=== PATIENT | male | born 1965 | race Caucasian/White ===

== ENCOUNTER → 2020-08-23 | Outpatient (CLI) | payer OTHER ==
[~2020-08-23] MED LIST: IBUP80TA PO; NICO21DI6 TD; OMEP40CA97 PO; PANT-23 PO; PERC5TAB12 PO
== END ==
LOC: M LABSMTC 11:03
PROVIDERS: ATTEND Anesthesiology
DX: Z01.812 Encounter for preprocedural laboratory examination (principal); Z20.822 Contact with and (suspected) exposure to COVID-19

== ENCOUNTER 2020-08-28 10:24 | Day surgery (SDC) | payer OTHER ==
[~2020-08-28] VITALS: Ht 180.3 cm; Wt 70.3 kg
[~2020-08-28 10:24] MED LIST changes: +LIDOCAINE 2% 100MG/5ML SDV (FOR ANES.) As Ordered ONE; +NS 1,000 ML IV ONE; +fentaNYL 100 MCG/2 ML INJECTION (J3010) As Ordered ONE; +propofoL 200 MG/20 ML VIAL As Ordered ONE
--- OUTSIDE RECORDS SUMMARY | 2020-08-28 10:31 | CCD | Continuity of Care Document ---
Author Author Amador JORGE M.D. Organization Unknown Address [address] [address] Phone [phone] Care Team Providers Care Pharmacy Technician Instructor Name Role Phone Robert Grigsby AUTM [phone] No PCP AUTM Unavailable Problems Description No Information Available Social History Type Date Description Comments Sex Unknown ETOH Use 5 A Day Tobacco Use Start: Unknown Patient is a current smoker, smo kes every day 1ppd Allergies, Adverse Reactions, Alerts Description No Known Drug Allergies Medications Description No Active Medications Immunizations Description No Information Available Vital Signs Date Vital Result Comment 08/07/2020 9:35am BP Systolic 122 mmHg BP Diastolic 70 mmHg Height 71 inches 5'11" Weight 162.00 lb BMI (Body Mass Index) 22.6 kg/m2 [place] Body Weight 172 lb Weight 73.483 kg BSA (Body Surface Area) 1.93 m2 Results Description No Information Available Procedures Description No Information Available Medical Devices Description No Information Available Encounters Description No Information Available Assessments Description No Information Available Plan of Treatment 08/07/2020 - Flavio Jorge M.D.* * New Medication:* No Active Medications Functional Status Description No Information Available Mental Status Description No Information Available Referrals Refer to Reason for Referral Status Appt Date Flavio Jorge M.D. unknown causes of abdominal pain Hugo eduled 08/07/[address] [address] [phone]
--- OUTSIDE RECORDS SUMMARY | 2020-08-28 10:31 | CCD ---
Author Author [facility] Organization [facility] Address Unknown Phone Unavailable Care Team Providers Care Refuse Collector Name Role Phone KENNA, L RAYSHAWN PA Unavailable Unavailable KENNA, L RAYSHAWN PA Unavailable Unavailable KENNA, L RAYSHAWN PA Unavailable Unavailable KENNA, L RAYSHAWN PA Unavailable Unavailable KENNA, L RAYSHAWN PA Unavailable Unavailable KENNA, L RAYSHAWN PA Unavailable Unavailable KENNA, L RAYSHAWN PA Unavailable Unavailable KENNA, L RAYSHAWN PA Unavailable Unavailable KENNA, L RAYSHAWN PA Unavailable Unavailable KENNA, L RAYSHAWN PA Unavailable Unavailable KENNA, L RAYSHAWN PA Unavailable Unavailable KENNA, L RAYSHAWN PA Unavailable Unavailable KENNA, L RAYSHAWN PA Unavailable Unavailable KENNA, L RAYSHAWN PA Unavailable Unavailable KENNA, L RAYSHAWN PA Unavailable Unavailable KENNA, L RAYSHAWN PA Unavailable Unavailable KENNA, L RAYSHAWN PA Unavailable Unavailable KENNA, L RAYSHAWN PA Unavailable Unavailable KENNA, L RAYSHAWN PA Unavailable Unavailable Re-disclosure Warning The records that you are about to access may contain information from federally-assisted alcohol or drug abuse programs. If such information is present, then the following federally mandated warning applies: This information has been disclosed to you from records protected by federal confidentiality rules (42 CFR part 2). The federal rules prohibit you from making any further disclosure of this information unless further disclosure is expressly permitted by the written consent of the person to whom it pertains or as otherwise permitted by 42 CFR part 2. A general authorization for the release of medical or other information is NOT sufficient for this purpose. The Federal rules restrict any use of the information to criminally investigate or prosecute any alcohol or drug abuse patient.The records that you are about to access may contain highly sensitive health information, the redisclosure of which is protected by Article 27-F of the [facility] Public Health law. If you continue you may have access to information: Regarding HIV / AIDS; Provided by facilities licensed or operated by the [facility] Office of Mental Health; or Provided by the [facility] Office for People With Developmental Disabilities. If such information is present, then the following [facility] mandated warning applies: This information has been disclosed to you from confidential records which are protected by state law. State law prohibits you from making any further disclosure of this information without the specific written consent of the person to whom it pertains, or as otherwise permitted by law. Any unauthorized further disclosure in violation of state law may result in a fine or long term sentence or both. A general authorization for the release of medical or other information is NOT sufficient authorization for further disc losure. Encounters Encounter Providers Location Date Indications Data Source(s ) Emergency Attender: RAYSHAWN [facility]-ER 04:42:00 PM EDT - 03/31/2020 07:24:00 PM T [facility] Patient discharged. Medications Medication Brand Name Start Date Product Form Dose Route Admi nistrative Instructions Pharmacy Instructions Status Indications Reaction Description Data Source(s) 420 gram 08/13/2020 12:00:00 AM EST recon soln 4000 DRINK THE LIQUID PER THE PRE-PROCEDURE INSTRUCTIONS DRINK THE LIQUID PER THE PRE-PROCEDUR E INSTRUCTIONS SOLD: 08/14/2020 [facility] 5 mg 08/13/2020 12:00:00 AM EST tablet,delayed release (DR/EC) 4 TAKE FOUR TABLETS BY MOUTH TOGETHER PER BOWEL PREPARATIONS INSTRUCTIONS TAKE FOUR TABLETS BY MOUTH TOGETHER PER BOWEL PREPARATIONS INSTRUCTIONS SOLD: 08/14/2020 [facility] pantoprazole 40 MG Delayed Release Oral Tablet PANTOPRAZOLE SODIUM 08/11/2020 12:00:00 AM EST tablet,delayed release (DR/EC) 60 T LIZBET ONE TABLET BY MOUTH TWICE A DAY -- 1 TABLET IN THE MORNING 1/2 HOUR BEFORE BREAKFAST AND 1 TABLET PRIOR TO BEDTIME TOTAL COURSE 3 MONTHS TAKE ONE TABLET BY MOUTH TWICE A DAY -- 1 TABLET IN THE MORNING 1/2 HOUR BEFORE BREAKFAST AND 1 TABLET PRIOR TO BEDTIME TOTAL COURSE 3 MONTHS SOLD: 08/14/2020 [facility] 5-325 mg 03/31/2020 12:00:00 AM EDT tablet 12 TAKE 1-2 TABLETS BY MOUTH EVERY 4-6 HOURS NEEDED , MAXIMUM DAILY DOSE = 12 TABLETS TAKE 1-2 TABLETS BY MOUTH EVERY 4-6 HOURS NEEDED , MAXIMUM DAILY DOSE = 12 TABLETS SOLD: 03/31/2020 [facility] Insurance Providers Payer name Policy type / Coverage type Policy ID Covered democrat ID Covered democrat's relationship to hayward Policy [place] Plan Information HARI [id number] SP [id number] [id number] SP [id number] MEDICAID [id number] S [id number] SELF PAY UNAVAILABLE S UNAVAILA BLE MEDICAID M [id number] S [id number] Medicaid [place] Medicaid Self MEDICAID [id number] SP [id number] SELF PAY UNAVAILABLE SP UNAVAILA BLE Problems, Conditions, and Diagnoses Code Display Name Description Problem Type Effective Dates Data Source(s) 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) DRUG THERAPY Diagnosis 03/31/2020 04:42:00 PM EDT [facility] F17.210 Nicotine dependence, cigarettes, uncompl icated NICOTINE DEPENDENCE, CIGARETTES, UNCOMPLICATED Diagnosis 03/31/2020 04:42:00 PM EDT [facility] R10.32 Left lower quadrant pain LEFT LOWER QUADRANT PAIN Diag nosis 03/31/2020 04:42:00 PM [facility] Results ID Date Data Source [id number] 08/23/2020 10:30:00 AM EST [facility] Name Value Range Interpretation Code Description Data Nay rce(s) Supporting Document(s) SARS coronavirus 2 RNA Not Detected [facility] This lab was ordered by [facility] and reported by [facility]. ID Date Data Source [id number] [facility]44[facility] FERNANDO VERA Observation Report - Physicians/[facility].VisitID: [id number] [place] [address] [phone], MRegistration Date/Time: 03/31/2020 14:13 Weight:70.3 kg (S). Height/Length:69 inches (S). BMI:22.9 PAST HISTORYProblems:Bowel Perforation. Additional Surgeries:"patch on right side of intestines". Medic ations:Lidocaine External unknown dose 1 patch , as needed, last dose this am .Tylenol Oral (Tablet 325 mg) 1 tablet, daily, last dose this am . Allergies:No Known Drug Allergy. FAMILY HISTORYNegative. No significant family medical history. (Electronically signed by Chuck Ferguson 04/01/2020 07:32) Name Value Range Interpretation Code Description Data Nay rce(s) Supporting Document(s) ID Date Data Source [id number] 03/31/2020 06:38:00 PM EDT [facility] DATE OF EXAMINATION: 03/31/2020 16:30 EDT ABD/PEL WITH IV CONTRAST HISTORY: Acute abdominal pain TECHNIQUE: This CT exam was performed using the following dose reduction techniques:automated exposure control, adjustment of mA and/or kV according to thepatient's size, and use of iterative reconstruction technique. Standard contiguous axial spiral imaging was obtained from the dome of thediaphragms through the symphysis pubis with intravenous contrast and withcoronal and sagittal reformatting. FINDINGS:Lung bases are clear. Visualized heart and pericardium normal. Liver, spleen, pancreas, gallbladder, bilateral adrenal glands and kidneys arenormal. The enteric system is without obstruction or acute inflammatory process.Normal terminal ileum and appendix identified in the right lower quadrant.Scattered colonic diverticulosis noted without acute diverticulitis. Pelvisdemonstrates normal bladder. Prostate gland demonstrates parenchymalcalcifications. No ascites. No free air. No adenopathy. Atheroscle rotic changesto the aorta and vasculature without aneurysm. Muscular skeletal structuresdemonstrate degenerative changes without acute osseous abnormality. IMPRESSION:No acute abdominopelvic pathology appreciated.No ascites. No focal inflammatory stranding. No adenopathy.Nonacute findings as above. Electronically signed in PS360 by: Ryan Martinez M.D. 03/31/2020 18:33 EDT Name Value Range Interpretation Code Description Data Nay rce(s) Supporting Document(s) ID Date Data Source [id number] 03/31/2020 03:10:00 PM EDT [facility] TSYSORDER [id number] Name Value Range Interpretation Code Description Data Nay rce(s) Supporting Document(s) MAGNESIUM 1.9 mg/dL 1.8-2.4 [facility] ID Date Data Source [id number] 03/31/2020 03:10:00 PM EDT [facility] TSYSORDER [id number] Name Value Range Interpretation Code Description Data Nay rce(s) Supporting Document(s) LIPASE 72 U/L 73-393 L [facility] ID Date Data Source [id number] 03/31/2020 03:10:00 PM EDT [facility] [id number] Name Value Range Interpretation Code Description Data Nay rce(s) Supporting Document(s) GLUCOSE 118 mg/dL 74-106 H [facility] BLOOD UREA NITROGEN 9 mg/dL 7-18 [facility] CREATININE 0.8 mg/dL 0.7-1.3 [facility] SODIUM 137 mmol/L 136-145 [facility] POTASSIUM 4.2 mmol/L 3.5-5.1 [facility] CHLORIDE 98 mmol/L 98-107 [facility] CO2 34 mmol/L 21-32 H [facility] CALCIUM 9.4 mg/dL 8.5-10.1 [facility] ANION GAP 5.0 mmol/L 5-12 [facility] GLOMERULAR FILTRATION RATE >90 mL/min [facility] GFR IS CALCULATED IN mL/min/1.73m2 ALEJANDRINA L FUNCTION: >90MILDLY DECREASED: 60-89MILDY TO MODERATELY DECREASED: 45-59 MODERATELY TO SEVERELY DECREASED: 30-44SEVERELY DECREASED: 15-29RENAL FAILURE: <15 AST 35 U/L 15-37 [facility] ALT 28 U/L 12-78 [facility] ALKALINE PHOSPHATASE 60 U/L 46-116 [facility]ital TOTAL BILIRUBIN 0.6 mg/dL 0.2-1.0 [facility] TOTAL PROTEIN 8.2 g/dl 6.4-8.2 [facility] ALBUMIN 4.5 gm/dL 3.4-5.0 [facility] ID Date Data Source [id number] 03/31/2020 03:08:00 PM EDT [facility] T[facility] [id number] Name Value Range Interpretation Code Description Data Nay rce(s) Supporting Document(s) PARTIAL THROMBOPLASTIN TIME 23.7 SECONDS 21.4-30.2 [facility] ID Date Data Source [id number] 03/31/2020 03:08:00 PM EDT [facility] TSYSORDER [id number] Name Value Range Interpretation Code Description Data Nay rce(s) Supporting Document(s) PROTHROMBIN TIME (PATIENT) 10.2 SECONDS 9.2-11.6 [facility] INR 0.98 0.87-1.06 [facility] ID Date Data Source [id number] 03/31/2020 02:49:00 PM EDT [facility] T[facility] [id number] Name Value Range Interpretation Code Description Data Nay rce(s) Supporting Document(s) WHITE BLOOD COUNT 9.6 K/mm3 4.0-10.0 [facility] RED BLOOD COUNT 4.56 M/mm3 4.50-6.00 [facility] HEMOGLOBIN 15.1 gm/dL 14.0-18.0 [facility] HEMATOCRIT 42.8 % 42.0-54.0 [facility] MEAN CELL VOLUME 93.9 fl 80-96 [facility] MEAN CORPUSCULAR HEMOGLOBIN 33.1 pg 27.0-31.0 H [facility] MEAN CORPUSCULAR HGB CONC 35.3 g/dl 32.0-36.0 [facility] RED CELL DISTRIBUTION WIDTH 12.2 % 10.0-14.5 [facility] PLATELET COUNT 262 K/mm3 172-450 [facility] MEAN PLATELET VOLUME 10.5 fl 9.0-13.0 [facility]ital GRAN % 70.2 % 50-80.0 [facility] IG% 0.1 % 0.0-0.2 [facility] LYMPH % 16.8 % 25.0-50.0 L [facility] MONO % 9.8 % 2.0-10.0 [facility] EOS % 2.5 % 0-5.0 [facility] BASO % 0.6 % 0.0-2.0 [facility] GRAN # 6.8 K/mm3 2.0-8.00 [facility] IG# 0.0 K/mm3 0.0-0.2 [facility] LYMPH # 1.6 K/mm3 1.0-5.0 [facility] MONO # 0.9 K/mm3 0.10-1.20 [facility] EOS # 0.2 K/mm3 0.0-0.5 [facility] BASO # 0.1 K/mm3 0.0-0.2 [facility] ID Date Data Source [id number] 03/31/2020 02:49:00 PM EDT [facility] TSYSORDER [id number] Name Value Range Interpretation Code Description Data Nay rce(s) Supporting Document(s) URINE COLOR. YELLOW [facility] URINE APPEARANCE CLEAR [facility] SPECIFIC GRAVITY,URINE 1.025 1.001-1.035 [facility] URINE LEUKOCYTE ESTERASE NEGATIVE NEGATIVE [facility] URINE NITRATE NEGATIVE NEGATIVE [facility] PH,URINE 6.0 5.0-9.0 [facility] URINE PROTEIN NEGATIVE mg/dL NEGATIVE [facility] URINE GLUCOSE (UA) NEGATIVE mg/dL NEGATIVE [facility] URINE KETONE NEGATIVE mg/dL NEGATIVE [facility] URINE UROBILINOGEN NORMAL(0.2-1) mg/dL 0-1 [facility] URINE BILIRUBIN NEGATIVE NEGATIVE [facility] URINE BLOOD NEGATIVE NEGATIVE [facility] Procedure Vital Signs ID Date Data Source UNK Name Value Range Interpretation Code Description Data Source(s) Body surface area Derived from formula 1.93 m2 1.93 m2 [facility] ([facility]) Body weight 73.483 kg 73.483 kg [facility] ([facility]) [place] body weight 172 [lb_av] 172 [facility]lb_av[facility] Body mass index (BMI) [Ratio] 22.6 kg/m2 22.6 k g/m2 [facility] ([facility]) Body weight 162.00 [lb_av] 162.00 [lb_av] [facility] Body height 71 [in_i] 71 [in_i] [facility] ([facility]) 5'11" Diastolic blood pressure 70 mm[Hg] 70 mm[Hg] [facility] ([facility]) Systolic blood pressure 122 mm[Hg] 122 mm[Hg] [facility]
[2020-08-28] MEDS ORDERED: propofoL 200 MG/20 ML VIAL As Ordered ONE (12:28)
--- NOTE | 2020-08-28 12:53 | ROOR ---
Patient Name: Amador Abraham Procedure Date: 08/28/2020 11:55 AM Date of : 1965 Age: 55 Room: [facility] Gender: Male Note Status: Finalized Procedure: Colonoscopy Indications: Screening for colorectal malignant neoplasm Providers: Flavio Jorge MD Referring MD: 1. No Referring Physician 1. No Referring Physician, Admin. Requesting Provider: Medicines: Monitored Anesthesia Care Complications: No immediate complications. Procedure: Pre-Anesthesia Assessment: - Prior to the procedure, a History and Physical was performed, and patient medications and allergies were reviewed. The patient is competent. The risks and benefits of the procedure and the sedation options and risks were discussed with the patient. All questions were answered and informed consent was obtained. Patient identification and proposed procedure were verified by the physician, the nurse and the anesthesiologist in the procedure room. Mental Status Examination: alert and oriented. Airway Examination: normal oropharyngeal airway and neck mobility. Respiratory Examination: clear to auscultation. CV Examination: normal. Prophylactic Antibiotics: The patient does not require prophylactic antibiotics. Prior Anticoagulants: The patient has taken no previous anticoagulant or antiplatelet agents. ASA Grade Assessment: II - A patient with mild systemic disease. After reviewing the risks and benefits, the patient was deemed in satisfactory condition to undergo the procedure. The anesthesia plan was to use monitored anesthesia care (MAC). Immediately prior to administration of medications, the patient was re-assessed for adequacy to receive sedatives. The heart rate, respiratory rate, oxygen saturations, blood pressure, adequacy of pulmonary ventilation, and response to care were monitored throughout the procedure. The physical status of the patient was re-assessed after the procedure. The Colonoscope was introduced through the anus and advanced to the terminal ileum, with identification of the appendiceal orifice and IC valve. The colonoscopy was performed without difficulty. The patient tolerated the procedure well. The quality of the bowel preparation was good. The terminal ileum, ileocecal valve, appendiceal orifice, and rectum were photographed. Scope insertion time was 2 minutes. Scope withdrawal time was 8 minutes. The total duration of the procedure was 12 minutes. Findings: The perianal and digital rectal examinations were normal. The terminal ileum appeared normal. Four sessile polyps were found in the recto-sigmoid colon. The polyps were 3 to 4 mm in size. These polyps were removed with a cold biopsy forceps. Resection and retrieval were complete. Verification of patient identification for the specimen was done by the physician and nurse using the patient's name, date and medical record number. Non-bleeding external and internal hemorrhoids were found during retroflexion. The hemorrhoids were small. Impression: - The examined portion of the ileum was normal. - Four 3 to 4 mm polyps at the recto-sigmoid colon, removed with a cold biopsy forceps. Resected and retrieved. - Non-bleeding external and internal hemorrhoids. Recommendation: - Patient has a contact number available for emergencies. The signs and symptoms of potential delayed complications were discussed with the patient. Return to normal activities tomorrow. Written discharge instructions were provided to the patient. - High fiber diet. - Continue present medications. - Await pathology results. - Use fiber, for example Citrucel, Fibercon, Konsyl or Metamucil. - Repeat colonoscopy in 5-10 years for surveillance based on pathology results. - Telephone GI clinic for pathology results in 2 weeks. - Return to primary care physician. Procedure Code(s): --- Professional --- 12187, Colonoscopy, flexible; with biopsy, single or multiple Diagnosis Code(s): --- Professional --- Z12.11, Encounter for screening for malignant neoplasm of colon K64.8, Other hemorrhoids K63.5, Polyp of colon CPT copyright 2019 [employer]. All rights reserved. The codes documented in this report are preliminary and upon instrument and control service person review may be revised to meet current compliance requirements. Flavio Jorge MD Flavio Jorge MD 08/28/2020 12:52:42 PM Electronically signed by Flavio Jorge MD Number of Addenda: 0 Note Initiated On: 08/28/2020 11:55 AM Estimated Blood Loss: Estimated blood loss was minimal.
[2020-08-28 13:00] VITALS: BP 160/100
--- NOTE | 2020-08-28 13:11 | ROOR ---
Patient Name: Amador Abraham Procedure Date: 08/28/2020 11:54 AM Date of : 1965 Age: 55 Room: [facility] Gender: Male Note Status: Finalized Procedure: Upper GI endoscopy Indications: Dyspepsia Providers: Flavio Jorge MD Referring MD: 1. No Referring Physician 1. No Referring Physician, Admin. Requesting Provider: Medicines: Monitored Anesthesia Care Complications: No immediate complications. Procedure: Pre-Anesthesia Assessment: - Prior to the procedure, a History and Physical was performed, and patient medications and allergies were reviewed. The patient is competent. The risks and benefits of the procedure and the sedation options and risks were discussed with the patient. All questions were answered and informed consent was obtained. Patient identification and proposed procedure were verified by the physician, the nurse and the anesthesiologist in the procedure room. Mental Status Examination: alert and oriented. Airway Examination: normal oropharyngeal airway and neck mobility. Respiratory Examination: clear to auscultation. CV Examination: normal. Prophylactic Antibiotics: The patient does not require prophylactic antibiotics. Prior Anticoagulants: The patient has taken no previous anticoagulant or antiplatelet agents. ASA Grade Assessment: II - A patient with mild systemic disease. After reviewing the risks and benefits, the patient was deemed in satisfactory condition to undergo the procedure. The anesthesia plan was to use monitored anesthesia care (MAC). Immediately prior to administration of medications, the patient was re-assessed for adequacy to receive sedatives. The heart rate, respiratory rate, oxygen saturations, blood pressure, adequacy of pulmonary ventilation, and response to care were monitored throughout the procedure. The physical status of the patient was re-assessed after the procedure. The Endoscope was introduced through the mouth, and advanced to the second part of duodenum. The upper GI endoscopy was accomplished without difficulty. The patient tolerated the procedure well. Findings: The examined esophagus was normal. Scattered mild inflammation characterized by erythema, friability and granularity was found in the gastric antrum. Biopsies were taken with a cold forceps for histology. Biopsies were taken with a cold forceps for Helicobacter pylori testing. Verification of patient identification for the specimen was done by the physician and nurse using the patient's name, date and medical record number. Estimated blood loss was minimal. No gross lesions were noted in the duodenal bulb, in the second portion of the duodenum and in the third portion of the duodenum. Biopsies for histology were taken with a cold forceps for evaluation of celiac disease. A healed ulcer was found in the first portion of the duodenum. The scar tissue was healthy in appearance. Impression: - Normal esophagus. - Gastritis. Biopsied. - No gross lesions in the duodenal bulb, in the second portion of the duodenum and in the third portion of the duodenum. Biopsied. - Duodenal scar. Recommendation: - Patient has a contact number available for emergencies. The signs and symptoms of potential delayed complications were discussed with the patient. Return to normal activities tomorrow. Written discharge instructions were provided to the patient. - High fiber diet. - Continue present medications. - Use Pepcid (famotidine) 20 mg PO Twice daily ( take wheelchair van operator first responder on empty stomach and at bedtime) for 2 months. - Follow an antireflux regimen. - Await pathology results. - Telephone GI clinic for pathology results in 2 weeks. - Return to primary care physician. Procedure Code(s): --- Professional --- 06865, Esophagogastroduodenoscopy, flexible, transoral; with biopsy, single or multiple Diagnosis Code(s): --- Professional --- K29.70, Gastritis, unspecified, without bleeding K31.89, Other diseases of stomach and duodenum R10.13, Epigastric pain CPT copyright 2019 [employer]. All rights reserved. The codes documented in this report are preliminary and upon lodge officer review may be revised to meet current compliance requirements. Flavio Jorge MD Flavio Jorge MD 08/28/2020 1:11:13 PM Electronically signed by Flavio Jorge MD Number of Addenda: 0 Note Initiated On: 08/28/2020 11:54 AM Estimated Blood Loss: Estimated blood loss was minimal.
== END 2020-08-28 13:25 | disposition home or self-care (01) ==
LOC: M OPP 10:24
PROVIDERS: ATTEND Internal Medicine Gastroenterology
DX: Z12.11 Encounter for screening for malignant neoplasm of colon (principal); R10.13 Epigastric pain; K63.5 Polyp of colon; K64.8 Other hemorrhoids; D13.1 Benign neoplasm of stomach; D13.39 Benign neoplasm of other parts of small intestine; K29.70 Gastritis, unspecified, without bleeding; K31.89 Other diseases of stomach and duodenum; F17.210 Nicotine dependence, cigarettes, uncomplicated; Z79.899 Other long term (current) drug therapy
CPT/HCPCS: 43239; 45380; 88305; 88342; J3010

== ENCOUNTER → 2020-10-05 | Outpatient (REF) | payer OTHER ==
[~2020-10-05] MED LIST changes: -LIDOCAINE 2% 100MG/5ML SDV (FOR ANES.) As Ordered ONE; -NS 1,000 ML IV ONE; -fentaNYL 100 MCG/2 ML INJECTION (J3010) As Ordered ONE; -propofoL 200 MG/20 ML VIAL As Ordered ONE
[2020-10-05 11:22] LABS: BASO # 0.1 10^3/uL (0.0-0.2); BASO % 0.9 % (0.0-1.0); EOS # 0.2 10^3/uL (0.0-0.5); EOS % 1.6 % (0.0-3.0); HEMOGLOBIN 16.1 g/dl (13.5-17.5); LYMPH # 1.9 10^3/uL (1.5-5.0); LYMPH % 17.8 % (24.0-44.0); MEAN CORPUSCULAR HEMOGLOBIN 32.9 pg (27.0-33.0); MEAN CORPUSCULAR HGB CONC 33.5 g/dl (32.0-36.5); MEAN CORPUSCULAR VOLUME 98.2 fl (80.0-96.0); MONO # 0.9 10^3/uL (0.0-0.8); NEUTROPHILS # 7.6 10^3/uL (1.5-8.5); NEUTROPHILS % 71.5 % (36.0-66.0); PLATELET COUNT, AUTOMATED 320 10^3/uL (150-450); RED BLOOD COUNT 4.89 10^6/uL (4.30-6.10); WHITE BLOOD COUNT 10.6 10^3/uL (4.0-10.0)
[2020-10-05 11:31] LABS: APPEARANCE, URINE CLEAR (CLEAR); BACTERIA, URINE AUTO NEGATIVE (NEGATIVE); BILIRUBIN, URINE AUTO NEGATIVE (NEGATIVE); BLOOD, URINE BLOOD NEGATIVE (NEGATIVE); COLOR, URINE YELLOW (YELLOW); GLUCOSE, URINE (UA) AUTO NEGATIVE (NEGATIVE); KETONE, URINE AUTO TRACE mg/dL (NEGATIVE); LEUKOCYTE ESTERASE, URINE AUTO NEGATIVE (NEGATIVE); MUCUS, URINE SMALL (NEGATIVE); NITRITE, URINE AUTO NEGATIVE (NEGATIVE); PROTEIN, URINE AUTO NEGATIVE (NEGATIVE); RBC, URINE AUTO 0 /HPF (0-3); SPECIFIC GRAVITY URINE AUTO 1.013 (1.002-1.035); SQUAMOUS EPITHELIAL CELL UR AU 0 /HPF (0-6); UROBILINOGEN, URINE AUTO 0.2 mg/dL (0.0-2.0); WBC, URINE AUTO 1 /HPF (0-3)
[2020-10-05 12:11] LABS: ALBUMIN 4.4 GM/DL (3.2-5.2); ALT/SGPT 101 U/L (12-78); BILIRUBIN,TOTAL 0.2 MG/DL (0.2-1.0); BLOOD UREA NITROGEN 6 MG/DL (7-18); CALCIUM LEVEL 9.4 MG/DL (8.5-10.1); CARBON DIOXIDE LEVEL 29 MEQ/L (21-32); CHLORIDE LEVEL 104 MEQ/L (98-107); CHOLESTEROL LEVEL 274 MG/DL (<200); CHOLESTEROL RISK RATIO 5.074 (<5); CREATININE FOR GFR 0.69 MG/DL (0.70-1.30); GLOMERULAR FILTRATION RATE > 60.0 (>56); GLUCOSE, FASTING 84 MG/DL (70-100); HDL CHOLESTEROL 54 MG/DL (>40); LDL CHOLESTEROL 144 MG/DL (<100); NON-HDL-C 220 MG/DL; POTASSIUM SERUM 4.4 MEQ/L (3.5-5.1); SODIUM LEVEL 139 MEQ/L (136-145); TOTAL PROTEIN 8.1 GM/DL (6.4-8.2); TRIGLYCERIDES LEVEL 380 MG/DL (<150)
[2020-10-05 12:12] LABS: FREE T4 0.89 NG/DL (0.76-1.46); TOTAL 25(OH) VITAMIN D 26.1 NG/ML (30.0-100.0)
[2020-10-05 12:13] LABS: FOLATE 11.2 NG/ML
[2020-10-05 12:19] LABS: VITAMIN B12 LEVEL 502 PG/ML
[2020-10-06 16:47] LABS: HEPATITIS B SURFACE ANTIGEN NEGATIVE (NEGATIVE)
[2020-10-06 17:14] LABS: HEPATITIS B CORE ANTIBODY IGM NEGATIVE (NEGATIVE)
[2020-10-06 17:17] LABS: HEPATITIS A ANTIBODY IGM NEGATIVE (NEGATIVE)
[2020-10-09 13:08] LABS: HEPATITIS C VIRUS ABY INDEX 0.1 INDEX (<0.8)
== END ==
LOC: M SFHCCLAY 09:17
PROVIDERS: ATTEND Physician Assistant
DX: I10 Essential (primary) hypertension (principal); R53.83 Other fatigue; F10.10 Alcohol abuse, uncomplicated; Z12.5 Encounter for screening for malignant neoplasm of prostate; R43.2 Parageusia; Z20.822 Contact with and (suspected) exposure to COVID-19

== ENCOUNTER → 2020-10-07 | Outpatient (REF) | payer OTHER | LOC: M LAB REF 17:37 | PROVIDERS: ATTEND Physician Assistant | DX: D49.2 Neoplasm of unspecified behavior of bone, soft tissue, and skin (principal) ==

== ENCOUNTER → 2020-10-30 | Outpatient (REF) | payer OTHER | LOC: M LAB REF 14:45 | PROVIDERS: ATTEND Dermatology | DX: L90.5 Scar conditions and fibrosis of skin (principal); Z85.820 Personal history of malignant melanoma of skin ==

== ENCOUNTER → 2021-12-20 | Outpatient (REF) | payer OTHER ==
[~2021-12-20] MED LIST changes: +OMEP40CA4 PO; -OMEP40CA97 PO
[2021-12-20 11:33] LABS: BASO # 0.1 10^3/uL (0.0-0.2); BASO % 0.9 % (0.0-1.0); EOS # 0.2 10^3/uL (0.0-0.5); EOS % 3.1 % (0.0-3.0); HEMATOCRIT 41.5 % (42.0-52.0); HEMOGLOBIN 14.2 g/dl (13.5-17.5); LYMPH # 1.5 10^3/uL (1.5-5.0); LYMPH % 25.7 % (24.0-44.0); MEAN CORPUSCULAR HEMOGLOBIN 34.8 pg (27.0-33.0); MEAN CORPUSCULAR HGB CONC 34.2 g/dl (32.0-36.5); MEAN CORPUSCULAR VOLUME 101.7 fl (80.0-96.0); MONO # 0.8 10^3/uL (0.0-0.8); MONO % 13.8 % (2.0-8.0); NEUTROPHILS # 3.3 10^3/uL (1.5-8.5); NEUTROPHILS % 56.2 % (36.0-66.0); PLATELET COUNT, AUTOMATED 222 10^3/uL (150-450); RED BLOOD COUNT 4.08 10^6/uL (4.30-6.10); WHITE BLOOD COUNT 5.8 10^3/uL (4.0-10.0)
[2021-12-20 12:14] LABS: ALT/SGPT 49 U/L (12-78); BILIRUBIN,TOTAL 0.3 MG/DL (0.2-1.0); BLOOD UREA NITROGEN 12 MG/DL (7-18); CALCIUM LEVEL 9.9 MG/DL (8.5-10.1); CARBON DIOXIDE LEVEL 28 MEQ/L (21-32); CHLORIDE LEVEL 106 MEQ/L (98-107); CHOLESTEROL LEVEL 279 MG/DL (<200); CHOLESTEROL RISK RATIO 3.576 (<5); CREATININE FOR GFR 0.69 MG/DL (0.70-1.30); GLOMERULAR FILTRATION RATE > 60.0 (>56); GLUCOSE, FASTING 94 MG/DL (70-100); HDL CHOLESTEROL 78 MG/DL (>40); LDL CHOLESTEROL 184 MG/DL (<100); NON-HDL-C 201 MG/DL; POTASSIUM SERUM 4.5 MEQ/L (3.5-5.1); SODIUM LEVEL 140 MEQ/L (136-145); TOTAL PROTEIN 7.5 GM/DL (6.4-8.2); TRIGLYCERIDES LEVEL 85 MG/DL (<150)
[2021-12-20 12:46] LABS: HEMOGLOBIN A1c 5.3 %
[2021-12-20 13:11] LABS: TOTAL 25(OH) VITAMIN D 56.3 NG/ML (30.0-100.0)
== END ==
LOC: M SFHCCLAY 08:22
PROVIDERS: ATTEND Nurse Practitioner Family
DX: I10 Essential (primary) hypertension (principal); R74.8 Abnormal levels of other serum enzymes; E55.9 Vitamin D deficiency, unspecified; E78.5 Hyperlipidemia, unspecified; Z13.1 Encounter for screening for diabetes mellitus

== ENCOUNTER → 2022-02-10 | Outpatient (CLI) | payer OTHER | LOC: M CLY 14:48 | PROVIDERS: ATTEND Nurse Practitioner Family | DX: S22.49XA Multiple fractures of ribs, unspecified side, initial encounter for closed fracture (principal); R04.2 Hemoptysis; R06.02 Shortness of breath; X58.XXXA Exposure to other specified factors, initial encounter; Y92.9 Unspecified place or not applicable; Y93.9 Activity, unspecified; Y99.9 Unspecified external cause status ==

== ENCOUNTER → 2022-04-12 | Outpatient (CLI) | payer OTHER | LOC: M CLY 14:38 | PROVIDERS: ATTEND Family Medicine | DX: M19.012 Primary osteoarthritis, left shoulder (principal) ==

== ENCOUNTER → 2022-09-27 | Outpatient (REF) | payer OTHER ==
[2022-09-27 17:14] LABS: TOTAL 25(OH) VITAMIN D 53.5 NG/ML (20.0-100.0)
[2022-09-27 17:15] LABS: ALKALINE PHOSPHATASE 67 U/L (46-116); ALT/SGPT 37 U/L (7.0-40); AST/SGOT 56 U/L (<34); BILIRUBIN,TOTAL 0.7 MG/DL (0.3-1.2); BLOOD UREA NITROGEN 12 MG/DL (9-23); CALCIUM LEVEL 9.5 MG/DL (8.5-10.1); CARBON DIOXIDE LEVEL 25 MMOL/L (20-31); CHLORIDE LEVEL 101 MMOL/L (98-107); CHOLESTEROL LEVEL 235 MG/DL (<200); CHOLESTEROL RISK RATIO 2.94 (<5); CREATININE FOR GFR 0.74 MG/DL (0.70-1.30); GLOMERULAR FILTRATION RATE > 60.0 (>56); GLUCOSE, FASTING 86 MG/DL (60-100); HDL CHOLESTEROL 79.8 MG/DL (>40); LDL CHOLESTEROL 133.8 MG/DL (<100); NON-HDL-C 155 MG/DL; POTASSIUM SERUM 4.5 MMOL/L (3.5-5.1); SODIUM LEVEL 135 MMOL/L (136-145); TOTAL PROTEIN 7.3 G/DL (5.7-8.2); TRIGLYCERIDES LEVEL 107 MG/DL (<150)
== END ==
LOC: M SFHCCLAY 13:25
PROVIDERS: ATTEND Nurse Practitioner Family
DX: I10 Essential (primary) hypertension (principal); F10.10 Alcohol abuse, uncomplicated; E55.9 Vitamin D deficiency, unspecified; R74.8 Abnormal levels of other serum enzymes; E78.5 Hyperlipidemia, unspecified; F17.210 Nicotine dependence, cigarettes, uncomplicated

== ENCOUNTER → 2022-10-25 | Outpatient (CLI) | payer OTHER | LOC: M CLY 13:49 | PROVIDERS: ATTEND Nurse Practitioner Family | DX: M25.552 Pain in left hip (principal) ==

== ENCOUNTER → 2022-10-25 | Outpatient (REF) | payer OTHER ==
[2022-10-25 17:21] LABS: BLOOD UREA NITROGEN 13 MG/DL (9-23); CALCIUM LEVEL 9.4 MG/DL (8.5-10.1); CARBON DIOXIDE LEVEL 30 MMOL/L (20-31); CHLORIDE LEVEL 103 MMOL/L (98-107); CREATININE FOR GFR 0.55 MG/DL (0.70-1.30); GLOMERULAR FILTRATION RATE > 60.0 (>56); GLUCOSE, FASTING 88 MG/DL (60-100); POTASSIUM SERUM 4.6 MMOL/L (3.5-5.1); SODIUM LEVEL 139 MMOL/L (136-145)
== END ==
LOC: M SFHCCLAY 13:39
PROVIDERS: ATTEND Nurse Practitioner Family
DX: I10 Essential (primary) hypertension (principal)

== ENCOUNTER → 2023-03-21 | Outpatient (CLI) | payer OTHER | LOC: M PLAIMG 13:03 | PROVIDERS: ATTEND Family Medicine | DX: D03.59 Melanoma in situ of other part of trunk (principal); M54.17 Radiculopathy, lumbosacral region ==

== ENCOUNTER → 2023-05-04 | Outpatient (CLI) | payer OTHER | LOC: M SOG 07:52 | PROVIDERS: ATTEND Orthopaedic Surgery | DX: M43.16 Spondylolisthesis, lumbar region (principal); R10.2 Pelvic and perineal pain; M41.86 Other forms of scoliosis, lumbar region ==

== ENCOUNTER → 2023-08-31 | Outpatient (REF) | payer OTHER ==
[2023-08-31 19:17] LABS: HEMATOCRIT 40.3 % (42.0-52.0); MEAN CORPUSCULAR HEMOGLOBIN 35.2 pg (27.0-33.0); MEAN CORPUSCULAR HGB CONC 34.7 g/dl (32.0-36.5); MEAN CORPUSCULAR VOLUME 101.3 fl (80.0-96.0); PLATELET COUNT, AUTOMATED 195 10^3/uL (150-450); RED BLOOD COUNT 3.98 10^6/uL (4.30-6.10); WHITE BLOOD COUNT 4.8 10^3/uL (4.0-10.0)
[2023-08-31 19:33] LABS: BLOOD UREA NITROGEN 5 MG/DL (9-23); CALCIUM LEVEL 9.2 MG/DL (8.5-10.1); CARBON DIOXIDE LEVEL 26 MMOL/L (20-31); CHLORIDE LEVEL 100 MMOL/L (98-107); GLOMERULAR FILTRATION RATE > 60.0 (>56); GLUCOSE, FASTING 84 MG/DL (60-100); POTASSIUM SERUM 4.4 MMOL/L (3.5-5.1); SODIUM LEVEL 135 MMOL/L (136-145)
[2023-08-31 19:36] LABS: VITAMIN B12 LEVEL 495 PG/ML (211-911)
== END ==
LOC: M SFHCCLAY 13:30
PROVIDERS: ATTEND Family Medicine
DX: D53.9 Nutritional anemia, unspecified (principal); M54.17 Radiculopathy, lumbosacral region